=== PATIENT | male | born 1970 | race Caucasian/White ===

== ENCOUNTER 2024-05-18 08:57 | Emergency (ER) | payer SELFPAY ==
[2024-05-18 09:11] VITALS: BP 145/88
--- NOTE | 2024-05-18 09:13 | ED.GENMED ---
History of Present Illness
General
Chief Complaint: Head Injury
Time Seen by Provider: 05/18/24 09:03
History of Present Illness
History of Present Illness:
53-year-old male with history of hypertension presents to the emergency department for evaluation of severe headache and nausea after a mechanical fall at work. Slipped on ice and fell striking his head on the ground. Denies loss of consciousness.
Denies any vomiting. Does not take any blood thinners or antiplatelets. No vision changes. Does have bilateral proximal neck pain but denies any upper or lower extremity radiculopathy or paresthesias
Review of Systems
Review of Systems
Allergies reviewed?: Yes
All Other Systems: ROS reviewed and negative except as documented in HPI and ROS
Phy Exam
Physical Exam
Physical Exam:
GEN: Well appearing, NAD, WDWN
HEENT: Oral mucosa moist, no scleral icterus, no nasal congestion. No midline cervical spine tenderness, positive bilateral paraspinous muscle tenderness. Normal cervical spine range of motion bilaterally.
Cardiac: Regular rate
Lung: No respiratory distress, no tachypnea
MSK: No gross deformity or injuries
Skin: Good color, no pallor or jaundice, no rashes
Neuro: AO x3; CN II-XII grossly intact. BUE strength 5/5 in all garcia, sensation intact and symmetric. BLE strength 5/5 in all garcia, sensation intact and symmetric
Psych: Calm, cooperative
Course
Orders/Labs/Results
Orders:
Orders
05/18/24 09:12
CT Head W/o Iv Contrast Urgent
Comment:
Reason For Exam: head injury
Vital Signs
Initial and Last Documented VS:
Initial Vital Signs
Temp Pulse Resp Pulse Ox
98.7 F 89 16 100
05/18/24 08:58 05/18/24 08:58 05/18/24 08:58 05/18/24 08:58
Last Documented Vital Signs
Temp Pulse Resp BP Pulse Ox
98.7 F 89 16 145/88 100
05/18/24 08:58 05/18/24 08:58 05/18/24 08:58 05/18/24 09:11 05/18/24 08:58
MDM/Problems Addressed
MDM/Problems Addressed:
CT of the head is unremarkable. Patient is neurologically intact with no focal deficits
*Critical Care Note
Total Time (30-74mins, 75-104mins- exclusive of procedures): Not Applicable
ED Attending Note
-
Portions of this chart may have been created with voice recognition software.� Occasional wrong word or��sound alike� substitutions may have occurred due to the inherent limitations of voice recognition software.
Discharge Plan
Departure
Patient Disposition: Home (Routine Discharge)
Date of Disposition: 05/18/24
Time of Disposition: 10:37
Patient with high blood pressure during this ER visit?: No
Discharge Problem:
Closed head injury
Instructions: Head Injury in Adults (DC)
Referrals:
Mei Malone, DO [Family Provider] -
Interventions
Interventions:
*Nursing Disposition Last Done: 05/18/24 10:52
ED- Neurological Assessment Last Done: 05/18/24 09:11
ED-Skin Assessment Last Done: 05/18/24 09:11
Discharge Date and Time
Discharge Date/Time: 05/18/24 10:52
Print Language: ICELANDIC
== END 2024-05-18 10:52 | disposition home or self-care (01) ==
LOC: EMR 08:57
PROVIDERS: EMERGENCY PHYSICIAN Emergency Medicine; FAMILY PHYSICIAN Internal Medicine
DX: S09.90XA Unspecified injury of head, initial encounter (principal); M54.2 Cervicalgia; R51.9 Headache, unspecified; R11.0 Nausea; W00.0XXA Fall on same level due to ice and snow, initial encounter; Y93.89 Activity, other specified; Y92.89 Other specified places as the place of occurrence of the external cause; Y99.0 Civilian activity done for income or pay; I10 Essential (primary) hypertension
CPT/HCPCS: 99284; 70450